=== PATIENT | male | born 1955 | race Caucasian/White ===

== ENCOUNTER → 2016-02-29 | Outpatient (CLI) | payer OTHER ==
--- NOTE | 2016-02-29 11:29 | KCIC ---
PROCEDURE MRI of the lumbar spine without contrast 02/29/2016 HISTORY Low back pain which radiates down the right leg worsening since February 04. TECHNIQUE Unenhanced T1 weighted, T2 weighted and inversion recovery sagittal and T1 weighted and T2 weighted axial images of the lumbar spine were obtained. FINDINGS Minimal S-shaped curvature of the thoracolumbar spine is seen. Degenerative signal changes and loss of height are seen involving the T11-12, L4-5 and L5-S1 discs. Degenerative signal changes are seen within the marrow surrounding these discs. The conus medullaris is normal in morphology, position, and signal characteristics. A 1.2 centimeter rounded high signal intensity lesion is seen involving the mid pole of the right kidney on the T2 weighted images. This likely represents a cyst. At the T11-12 disc space there is a mild generalized disc bulge. Superimposed on this disc bulge is a left paracentral focal disc protrusion. This measures 5 millimeters in AP diameter. Degenerative changes are seen involving the facet joints bilaterally. These findings result in mild left-sided central spinal canal stenosis. No neural foraminal stenosis is seen. The T12-L1, L1-2 and L2-3 disc spaces are within normal limits. At the L3-4 disc space there is a mild generalized disc bulge. Degenerative changes are seen involving the facet joints bilaterally. There is mild ligamentum flavum hypertrophy bilaterally. These findings when combined do not result in significant central spinal canal or neural foraminal stenosis. At the L4-5 disc space there is a mild generalized disc bulge. Superimposed on this disc bulge is a central/right paracentral focal disc herniation. This extrudes inferiorly. This measures 1.5 x 1.3 x 9 0.6 centimeters in craniocaudal, transverse and AP dimensions. Degenerative changes are seen involving the facet joints bilaterally. There is mild ligamentum flavum hypertrophy. These findings when combined result in mild right greater than left central spinal canal stenosis. The extruded disc herniation appears to impinge upon the right L5 nerve root within the right lateral aspect of the central spinal canal. No neural foraminal stenosis is seen. At the L5-S1 disc space there is a mild generalized disc bulge. Superimposed on this disc bulge is a central/right paracentral focal disc herniation. This extrudes slightly inferiorly and laterally. It measures 9 millimeters in AP diameter. Degenerative changes are seen involving the facet joints bilaterally. There is mild ligamentum flavum hypertrophy. These findings result in mild right greater than left central spinal canal stenosis. The disc herniation abuts and mildly displaces the right S1 nerve root within the right lateral aspect of the central spinal canal. No neural foraminal stenosis is seen. IMPRESSION The changes of degenerative disc disease are seen involving the lower thoracic and throughout the lumbar spine. These findings result in mild left-sided central spinal canal stenosis at T11-12 and mild right greater than left central spinal canal stenosis at L4-5 and L5-S1. No neural foraminal stenosis is seen. Disc herniations are seen at L4-5 and L5-S1 which appear to result in impingement upon the right L5 nerve root within the right lateral aspect of the central spinal canal and abut and mildly displace the right S1 nerve root within the right lateral aspect of the central spinal canal as outlined above. Electronically signed by: Ralph Otero MD (Feb 29, 2016 11:28:02)
== END | disposition home or self-care (01) ==
LOC: KCIC MRI 09:02
PROVIDERS: ATTEND Neurological Surgery
DX: M54.5 Low back pain (principal); M54.16 Radiculopathy, lumbar region
CPT/HCPCS: 72148